=== PATIENT | male | born 1955 | race Caucasian/White ===

== ENCOUNTER 2019-11-22 08:07 | Observation (INO) | payer BC, SELFPAY ==
[2019-11-22] VITALS (9 sets, daily range): BP systolic 131–178; BP diastolic 72–98; PULSE 50–71; RESP 15–18; TEMP 36.3–37.1; O2SAT 93–97
--- NOTE | 2019-11-22 08:21 | ED.GENADUL_ITS ---
Discharge Plan Disposition Patient Disposition: [facility] INPATIENT Condition: Stable Discharge Details Chief Complaint: FlankPain Clinical Impression: Calculus of distal left ureter Primary Care Provider: Yudith,Local ED Provider: Luis Jay Home Meds and New Rx's Prescriptions: No Action No Known Home Meds RF: 0 Medical Decision Making 64-year-old male who [place] out of state, [place]. Reports days of stuttering left flank pain that became severe and began to radiate to the lower abdomen over the early morning babysitter hours today. He has not had a fever. He was nauseated at home. He arrives afebrile, in pain but otherwise well-appearing. He is tender in his left flank and left lower abdomen. Differential diagnosis includes renal colic, UTI, would consider other intra-abdominal pathologies. Patient IV access established, given ketorolac, antiemetic, fluids. Screening laboratories obtained and he was referred for CT images. Labs: Positive hematuria but negative LE and nitrates. Note of uric acid present. He denies history of gout. Blood work: White blood cell count 7.7, hematocrit 45.7, platelets 237. BUN is 23 with a creatinine of 1.0 and electrolytes are normal. CT with 10 x 6 x 6 mm distal left ureteral calculus with moderate collecting system dilatation. There was a note of a 2.3 cm cyst of the right kidney. 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 Please see formal report. Patient given Flomax. He had some improvement of his pain which then recurred. Patient was seen in consultation by Dr. Car. Due to ongoing pain, patient will be admitted. [facility] General Mode of arrival: ambulatory . Date/Time Provider Initiated Documentation: 11/22/19 08:09 . Limitations to Documentation: no limitations . Information obtained by: patient . History of Present Illness 64 year old M presents to the emergency department with the chief complaint of Left flank pain worse over hours, described as moderate and similar to prior episodes, and is localized to the abdomen and left. Patient reports radiation to back. Patient started experiencing this hour(s) and it has been intermittent. No relieving factors improve symptom(s), No exacerbating factors reported . Patient notes other (Bloody urine); denies fever/chills. Patient did receive the following treatments prior to arrival, none Related Data Home Medications Medication Instructions Recorded Confirmed Unknown [No Known Home Meds] 11/22/19 11/22/19 Allergies Allergy/AdvReac Type Severity Reaction Status Date / Time No Known Allergies Allergy Unverified 11/22/19 08:14 General Stated Complaint: FlankPain DANIKA: 3 Review of Systems Narrative: History of same in the past. Staying at his home in [place]. No recent illness. Denies fever. 6 systems reviewed and otherwise negative [facility] Medical History (Updated 11/22/19 @ 11:36 by Luis Jay MD) Kidney stone (Chronic) Social History Smoking/Tobacco Use Status: Never Alcohol Intake: current Alcohol Intake frequency: a few times a week Drug use: Occasionally Substance use type: marijuana Do you feel safe at home: Yes Do you feel safe in your relationship?: Yes Exam Narrative Exam Narrative: GEN: awake, alert, oriented 3. Pleasant, well groomed, interactive. HEAD: Normocephalic, atraumatic ENT: Mucous membranes moist, oropharynx unremarkable, External ear exam unremarkable EYES: PERRL, EOMI NECK: Full ROM, no JASON, no menigismus CHEST/RESP: Nontender, clear to auscultation bilateral, no wheeze/rhonchi/rales CARDIOVASCULAR: RRR, no murmur, rub sanjiv. 2+ Rad pulse bilateral ABDOMEN: Soft, tender left, did not appreciate rebound, no mass. +Bowel sounds. Back with left flank tenderness EXT: Full ROM, no edema, no rash Neuro: Grossly normal neurologic exam, conversant, interactive. Psych: Speech fluent, thoughts congruent, affect normal Course Vital Signs Vital signs: Vital Signs Temperature 36.6 C 11/22/19 08:14 Pulse 54 L 11/22/19 08:14 Respiratory Rate 15 11/22/19 08:14 Pulse Oximetry 97 11/22/19 08:14 Temperature 36.6 C 11/22/19 08:14 Temperature Source Temporal Artery Scan 11/22/19 08:14 Pulse 54 L 11/22/19 08:14 Respiratory Rate 15 11/22/19 08:14 Blood Pressure Position Supine 11/22/19 08:14 Pulse Oximetry 97 11/22/19 08:14 Oxygen Delivery Method Room Air 11/22/19 08:14 Oxygen Flow Rate 0 02/09/20 08:14 Pain Level 9 11/22/19 08:14
[2019-11-22] MEDS: Ketorolac 30 MG/ML VIAL IVP (08:22)
[2019-11-22] MEDS: Ondansetron 4 MG/2 ML VIAL IVP (08:22)
[2019-11-22] MEDS: Normal Saline 1,000 ML 150 ML IV ×4 (08:24→22:10)
[2019-11-22 08:25] LABS: Bilirubin Negative (Negative); Blood Large (Negative); Clarity Sl Cloudy (Clear); Glucose Negative (Negative); Ketones Negative (Negative); Leukocyte Esterase Negative (Negative); Nitrite Negative (Negative); Specific Gravity >= 1.030 (1.005-1.025); Urobilinogen 0.2 EU/dL (Up TO 0.2); pH 5.5 (5-8)
[2019-11-22 08:38] LABS: Bacteria Moderate HPF (Negative); C & S Indicated? Yes; Casts Negative LPF (Negative); Epithelial Cells Rare HPF (Negative); Mucus Negative (Negative); RBC >50 HPF (0-2); WBC Negative HPF (0-5)
[2019-11-22 08:42] LABS: Abs Immature Grans 0.01 k/cumm (0.0-0.09); Absolute Basophil Count 0.04 k/cumm (0.0-0.2); Absolute Eosinophil Count 0.12 k/cumm (0.0-0.7); Absolute Neutrophil Count 5.69 k/cumm (1.2-6.7); Basophils % 0.5; Eosinophils % 1.5; HCT 45.7 % (40.0-50.0); HGB 15.6 g/dL (13.5-17.5); Immature Grans % 0.1 %; Lymphocytes % 15.5; Mean Corp. HGB Concentration 34.1 g/dL (32.0-36.0); Mean Corpuscular Hemoglobin 29.2 pg (27.0-33.0); Mean Corpuscular Volume 85.6 fL (80-95); Mean Platelet Volume 11.1 fL (8.0-11.0); Neutrophils % 73.4; Platelet Count 237 x1000/uL (130-400); RBC 5.34 m/cumm (4.50-6.00); White Blood Cell Count 7.76 k/cumm (4.4-10.8)
[2019-11-22 08:48] LABS: ALT 42 U/L (16-63); AST 24 U/L (15-37); Albumin 4.4 g/dL (3.4-5.0); Alkaline Phosphatase 88 U/L (46-116); BUN 23 mg/dL (7-18); Bilirubin, Total 0.3 mg/dL (0.2-1.0); CREATININE 1.09 mg/dL (0.70-1.30); Calcium 9.1 mg/dL (8.5-10.1); Chloride 103 mmol/L (98-107); Glucose 138 mg/dL (74-106); Sodium 139 mmol/L (136-145)
--- NOTE | 2019-11-22 08:58 | DI.CT_ITS ---
EXAM: CT RENAL COLIC WO CLINICAL HISTORY: Flank pain TECHNIQUE: Noncontrast COMPARISON: No exams were available for comparison FINDINGS: There is moderate left hydronephrosis. There is a duplex collecting system. The upper and lower po le moieties merge at the upper 3rd of the ureter. There is a 6 x 7 x 11 millimeter stone in the dist al left ureter. There is left perinephric stranding. Stranding is also seen around the distal urete r. An additional tiny stone is seen near the lower pole of the left kidney. No right renal calculi or hydronephrosis is seen. There is a small right renal cyst. The bladder is mildly distended. Calc ifications are seen posteriorly in the bladder which could be within the bladder wall. Prostate is n ot enlarged. There is bilateral gynecomastia, left greater than right. Lung bases show dependent changes. The li allie, gallbladder, spleen, pancreas and adrenals are unremarkable. There is no bowel dilatation or in flammatory change. Diverticulosis is noted of the descending and sigmoid colon. The appendix appear s normal. The aorta is normal in diameter. IMPRESSION: Moderate left hydronephrosis secondary to an 11 millimeter stone in the distal ureter.
--- NOTE | 2019-11-22 09:26 | DI.VRAD_ITS ---
PROCEDURE INFORMATION: Exam: CT Abdomen And Pelvis Without Contrast Exam date and time: 11/22/2019 8:57 AM Age: 64 years old Clinical indication: Other: Flank pain; Patient HX: History of kidney stones TECHNIQUE: Imaging protocol: Computed tomography of the abdomen and pelvis without contrast. Radiation optimization: All CT scans at this facility use at least one of these dose optimization techniques: automated exposure control; mA and/or kV adjustment per patient size (includes targeted exams where dose is matched to clinical indication); or iterative reconstruction. COMPARISON: No relevant prior studies available. FINDINGS: Lungs: Bibasilar atelectasis Liver: Normal. No mass. Gallbladder and bile ducts: Normal. No calcified stones. No ductal dilation. Pancreas: Normal. No ductal dilation. Spleen: Normal. No splenomegaly. Adrenals: Normal. No mass. Kidneys and ureters: 10.5 x 6.5 by 6.2 millimeter distal LEFT ureteral calculus causes moderate dilatation of LEFT collecting system and LEFT ureter. The LEFT kidney is edematous and there is LEFT perirenal stranding. 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 2.3 cm cyst in the right kidney Stomach and bowel: Unremarkable. No obstruction. No mucosal thickening. Appendix: No evidence of appendicitis. Intraperitoneal space: Unremarkable. No free air. No significant fluid collection. Vasculature: Unremarkable. No abdominal aortic aneurysm. Lymph nodes: Unremarkable. No enlarged lymph nodes. Bladder: Calcifications in the bladder wall posteriorly to the right of midline (2:136-134). Reproductive: Unremarkable as visualized. Bones/joints: Unremarkable. No acute fracture. Soft tissues: Unremarkable. IMPRESSION: 1. 10.5 x 6.5 by 6.2 millimeter distal LEFT ureteral calculus causes moderate dilatation of LEFT collecting system and LEFT ureter. The LEFT kidney is edematous and there is LEFT perirenal stranding. 2. 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 3. Calcifications in the bladder wall posteriorly to the right of midline (2:136-134). Recommend further evaluation to rule out infection or neoplasm. Recommend urology consult Dictated and Authenticated by: Meghna Lancaster MD. Ordering:CORAL Smith MD
[2019-11-22] MEDS: HYDROmorphone 2 MG/ML VIAL 0.5 MG IVP ×5 (09:40→22:10)
[2019-11-22] MEDS: Tamsulosin 0.4 MG CAPCR PO (09:43)
--- NOTE | 2019-11-22 14:07 | HPE_ITS ---
Date of service: 11/22/19 Time of Service: 14:08 Assessment and Plan Assessment and plan (1) Calculus of distal left ureter: Status: Acute Assessment and plan: We will give him hydration and analgesia overnight and reassess in the morning. If he remains symptomatic, we will consider surgical intervention (stent versus ureteroscopy). If he is clinically improved, we can give him the option of being discharge and returning to [place] for ultimate treatment of his stone. History of Present Illness History of Present Illness Chief Complaint: Left ureteral stone Narrative: This is a 64 year old man who has a history of left sided kidney and ureteral stones. He has been under the care of urologists in [place]. He has required ureteroscopy in the past. It sounds like he had a staged procedure with a stent having been placed for about 10 days followed by definitive treatment. He began having some gross hematuria and low back pain about a week ago. He saw his urologist last in the week and a CT scan was scheduled for this week. He was in our area when his pain became severe and he presented to our ER. He was evaluated with a stone protocol CT scan. There is a large stone at the level where the iliac vessels cross the ureter. He has no fever or chills. He has had some nausea. His pain returned afteer being medicated in the ER. He is admitted for hydration and analgesia. Review of Systems Narrative: No fevers or chills No vision change or dysphasia No diabetes or thyroid dysfunction No shortness of breath, cough or hemoptysis No chest pain or palpitations No hepatitis, ulcers, jaundice, diarrhea or constipation No seizures, strokes or peripheral neuropathy No bleeding disorders or anemia No gout [facility] Medical History (Updated 11/22/19 @ 14:15 by Escobar Car MD) Kidney stone (Chronic) Urolithiasis (Acute) Social History Smoking/Tobacco Use Status: Never Alcohol Intake: current Alcohol Intake frequency: a few times a week Drug use: Occasionally Substance use type: marijuana Do you feel safe at home: Yes Do you feel safe in your relationship?: Yes Meds Home Medications and Allergies Home Medications Medication Instructions Recorded Confirmed Type Unknown [No Known Home Meds] 11/22/19 11/22/19 History Allergies Allergy/AdvReac Type Severity Reaction Status Date / Time No Known Allergies Allergy Unverified 11/22/19 08:14 Exam Narrative Exam Narrative: I reviewed his CT scan from the ER. He has a partially duplicated collecting system on the left. He has a rather large left ureteral stone which is obstructing both segments of the duplicated collecting system. The stone appears to be at the level where the ureter and iliac vessels come together. There are a few small nonobstructing stones in the left kidney as well. Const General: cooperative Nutritional Appearance: average body habitus Orientation: alert, awake and oriented x3 Neck Neck: supple Resp Effort & Inspection: normal respiratory effort Auscultation: clear to auscultation bilaterally Cardio Rate: regular rate Rhythm: regular rhythm GI Palpation: soft, no masses, not rigid and nontender Neuro General: alert, awake and oriented x3 Results Labs Result diagrams: 11/22/19 08:20 11/22/19 08:20 Labs: Laboratory Results - last 24 hr 11/22/19 11/22/19 11/22/19 08:13 08:20 08:20 WBC 7.76 RBC 5.34 Hgb 15.6 Hct 45.7 MCV 85.6 MCH 29.2 MCHC 34.1 RDW 13.0 Plt Count 237 MPV 11.1 H Immature Gran % 0.1 Neutrophils % 73.4 Lymphocytes % 15.5 Monocytes % 9.0 Eosinophils % 1.5 Basophils % 0.5 Absolute Neutrophils 5.69 Absolute Lymphocytes 1.20 Absolute Monocytes 0.70 Absolute Eosinophils 0.12 Absolute Basophils 0.04 Sodium 139 Potassium 4.0 Chloride 103 Carbon Dioxide 26.0 Anion Gap 10.0 BUN 23 H Creatinine 1.09 Estimated GFR/1.73 m2 >= 60.00 Glucose 138 H Calcium 9.1 Total Bilirubin 0.3 AST 24 ALT 42 Alkaline Phosphatase 88 Total Protein 8.0 Albumin 4.4 Urine Color Yellow Urine Clarity Sl cloudy Urine pH 5.5 Ur Specific [place] >= 1.030 H Urine Protein 30 H Urine Ketones Negative Urine Blood Large H Urine Nitrite Negative Urine Bilirubin Negative Urine Urobilinogen 0.2 Ur Leukocyte Esterase Negative Urine RBC >50 H Urine WBC Negative Ur Epithelial Cells Rare Urine Crystals Many uric acid Urine Bacteria Moderate Urine Casts Negative Urine Mucus Negative Ur Culture Indicated? Yes Urine Glucose Negative Last Vital Signs Temp 36.3 C L 11/22/19 13:24 Pulse 60 11/22/19 13:24 Resp 18 11/22/19 13:24 BP 163/98 H 11/22/19 13:24 Pulse Ox 96 11/22/19 13:24
[2019-11-22] MEDS: Ketorolac 15 MG/ML VIAL IVP ×2 (17:03→22:11)
[2019-11-22] MEDS: Docusate Sodium 100 MG CAP PO (19:41)
[2019-11-22] MEDS: Calcium Carbonate *TUMS* 500 MG CHEW PO (20:33)
[2019-11-22] MEDS: Normal Saline Flush 10 ML SYR IVP (22:11)
[2019-11-23] VITALS (9 sets, daily range): BP systolic 117–140; BP diastolic 54–82; PULSE 51–69; RESP 13–22; TEMP 36.6–37; O2SAT 93–97
[2019-11-23] MEDS: HYDROmorphone 2 MG/ML VIAL 0.5 MG IVP ×3 (03:01→11:35)
[2019-11-23] MEDS: Normal Saline Flush 10 ML SYR IVP ×3 (03:02→11:36)
[2019-11-23] MEDS: Normal Saline 1,000 ML 150 ML IV ×2 (04:34→11:35)
[2019-11-23] MEDS: Ketorolac 15 MG/ML VIAL IVP (06:49)
--- NOTE | 2019-11-23 07:29 | PGE_ITS ---
Date of Service Date of service: 11/23/19 Time of Service: 07:29 Assessment and Plan Assessment and plan (1) Calculus of distal left ureter: Status: Acute Assessment and plan: He has no signs of sepsis, so we do not need to take him to the operating room emergently. I gave him the options of staying in the hospital and having me do a stone manipulation while he is here. I explained that I would initially do a retrograde pyelogram to identify the level of the stone. As long as I can pass the ureteroscope up to the stone safely, we should be able to treat it with a holmium laser and evacuate the stone fragments. If there is so much edema around the stone that we are unable to access the stone safely, he would need a staged procedure with placement of a ureteral stent followed by a more definitive therapy. The other option would be to discharge the patient with oral pain medications. He could then follow-up as an outpatient either with his urologist down in [facility] or here with me locally (if he is staying in the area for a longer amount of time) After our discussion this morning, he would prefer to move ahead with a surgical procedure today. I have made him n.p.o. and ordered an antibiotic to be given on-call to the operating room. Once our full complement of staffing has arrived this morning, we will contact to the operating room and get him on the schedule. Subjective Subjective Interval history since last seen: He is having less severe pain this morning, but still has some pressure related to his stone. He is not having any nausea or vomiting. He has no fevers. He has not passed a stone Exam Narrative Exam Narrative: He does not appear overly uncomfortable His vital signs are documented elsewhere His abdomen is soft with no masses. He is awake and alert Objective Objective Clinical Data: Abnormal lab results 11/22/19 11/22/19 11/22/19 Range/Units 08:13 08:20 08:20 MPV 11.1 H (8.0-11.0) fL BUN 23 H (7-18) mg/dL Glucose 138 H (74-106) mg/dL Ur Specific [place] >= 1.030 H (1.005-1.025) Urine Protein 30 H (Negative) mg/dL Urine Blood Large H (Negative) Urine RBC >50 H (0-2) HPF Vital Signs Temperature 37.1 C 02/09/20 23:38 Temperature Source Tympanic 11/22/19 23:38 Pulse 65 11/22/19 23:38 Pulse Rhythm Regular 11/23/19 03:55 Pulse Strength Normal 11/22/19 10:49 Respiratory Rate 18 11/22/19 23:38 Respiratory Effort Non-Labored 11/23/19 03:55 Respiratory Depth Normal 11/23/19 03:55 Respiratory Pattern Normal 11/23/19 03:55 Blood Pressure 131/72 11/22/19 23:38 Blood Pressure Mean 113 11/22/19 10:49 Blood Pressure Position Supine 11/22/19 10:49 Pulse Oximetry 96 11/22/19 23:38 Oxygen Delivery Method Room Air 11/22/19 23:38 Oxygen Flow Rate 0 11/22/19 23:38 Pain Level 6 11/23/19 06:49 Intake & Output 11/22/19 11/22/19 11/23/19 11:59 23:59 11:59 Intake Total 2517.5 / 2517.5 960 / 960 Output Total 100 / 550 450 / 550 500 / 500 Balance -100 / 1967.5 7.5 / 1967.5 460 / 460 Weight 108.862 kg 108.862 kg Intake: IV 7.5 / 2036.5 960 / 960 Oral 480 / 480 Output: Urine 100 / 550 450 / 550 500 / 500 Other: Urine Color Dark Red Yellow Yellow Urine Appearance Hematuria Clear Clear Urine Odor Strong Normal Strain Urine Result Negative-No Stones/Gravel Negative-No Stones/Gravel Comment a few flecks of gravel noted on straining No sediment present in strainer No sediment present. Stool Size Small Stool Characteristics Soft Formed Voiding Methods Urinal Urinal Laboratory Results WBC 7.76 k/cumm (4.4-10.8) 11/22/19 08:20 RBC 5.34 m/cumm (4.50-6.00) 11/22/19 08:20 Hgb 15.6 g/dL (13.5-17.5) 11/22/19 08:20 Hct 45.7 % (40.0-50.0) 11/22/19 08:20 MCV 85.6 fL (80-95) 11/22/19 08:20 MCH 29.2 pg (27.0-33.0) 11/22/19 08:20 MCHC 34.1 g/dL (32.0-36.0) 11/22/19 08:20 RDW 13.0 % (11.8-14.1) 11/22/19 08:20 Plt Count 237 x1000/uL (130-400) 11/22/19 08:20 MPV 11.1 fL (8.0-11.0) H 11/22/19 08:20 Immature Gran % 0.1 % 11/22/19 08:20 Neutrophils % 73.4 11/22/19 08:20 Lymphocytes % 15.5 11/22/19 08:20 Monocytes % 9.0 11/22/19 08:20 Eosinophils % 1.5 11/22/19 08:20 Basophils % 0.5 11/22/19 08:20 Absolute Neutrophils 5.69 k/cumm (1.2-6.7) 11/22/19 08:20 Absolute Lymphocytes 1.20 k/cumm (1.2-3.4) 11/22/19 08:20 Absolute Monocytes 0.70 k/cumm (0.11-0.7) 11/22/19 08:20 Absolute Eosinophils 0.12 k/cumm (0.0-0.7) 11/22/19 08:20 Absolute Basophils 0.04 k/cumm (0.0-0.2) 11/22/19 08:20 Sodium 139 mmol/L (136-145) 11/22/19 08:20 Potassium 4.0 mmol/L (3.5-5.1) 11/22/19 08:20 Chloride 103 mmol/L (98-107) 11/22/19 08:20 Carbon Dioxide 26.0 mmol/L (21.0-32.0) 11/22/19 08:20 Anion Gap 10.0 mmol/L (3-11) 11/22/19 08:20 BUN 23 mg/dL (7-18) H 11/22/19 08:20 Creatinine 1.09 mg/dL (0.70-1.30) 11/22/19 08:20 Estimated GFR/1.73 m2 >= 60.00 (mL/min/1.73m2) 11/22/19 08:20 Glucose 138 mg/dL (74-106) H 11/22/19 08:20 Calcium 9.1 mg/dL (8.5-10.1) 11/22/19 08:20 Total Bilirubin 0.3 mg/dL (0.2-1.0) 11/22/19 08:20 AST 24 U/L (15-37) 11/22/19 08:20 ALT 42 U/L (16-63) 11/22/19 08:20 Alkaline Phosphatase 88 U/L (46-116) 11/22/19 08:20 Total Protein 8.0 g/dL (6.4-8.2) 11/22/19 08:20 Albumin 4.4 g/dL (3.4-5.0) 11/22/19 08:20 Urine Color Yellow (Yellow) 11/22/19 08:13 Urine Clarity Sl cloudy (Clear) 11/22/19 08:13 Urine pH 5.5 (5-8) 11/22/19 08:13 Ur Specific [place] >= 1.030 (1.005-1.025) H 11/22/19 08:13 Urine Protein 30 mg/dL (Negative) H 11/22/19 08:13 Urine Ketones Negative mg/dL (Negative) 11/22/19 08:13 Urine Blood Large (Negative) H 11/22/19 08:13 Urine Nitrite Negative (Negative) 11/22/19 08:13 Urine Bilirubin Negative (Negative) 11/22/19 08:13 Urine Urobilinogen 0.2 EU/dL (Up TO 0.2) 11/22/19 08:13 Ur Leukocyte Esterase Negative (Negative) 11/22/19 08:13 Urine RBC >50 HPF (0-2) H 11/22/19 08:13 Urine WBC Negative HPF (0-5) 11/22/19 08:13 Ur Epithelial Cells Rare HPF (Negative) 11/22/19 08:13 Urine Crystals Many uric acid HPF (Negative) 11/22/19 08:13 Urine Bacteria Moderate HPF (Negative) 11/22/19 08:13 Urine Casts Negative LPF (Negative) 11/22/19 08:13 Urine Mucus Negative (Negative) 11/22/19 08:13 Ur Culture Indicated? Yes 11/22/19 08:13 Urine Glucose Negative mg/dL (Negative) 11/22/19 08:13
--- NOTE | 2019-11-23 11:13 | W.NUTCONSULT ---
Date of service: 11/23/19 Time of Service: 11:13 Nutritional Consult ASSESSMENT: 64 year old gentleman with calculus of distal left ureter. Currently NPO for procedure. Met nutrient/fluid needs yesterday. BMI indicates class 1 obesity. Not considered at nutritional risk. MONITORING AND EVALUATION: po intake, weight, labs Time Spent in Nutritional Counseling and Treatment: 0 time spent face to face
[2019-11-23] MEDS: ceFAZolin 2 GM/50 ML BAG IVPB (13:06)
[2019-11-23] MEDS: Lidocaine 2% Jelly 6 ML SYR (13:28)
[2019-11-23] MEDS: Omnipaque 300 MG/ML 50 ML BTL (13:28)
--- NOTE | 2019-11-23 13:48 | DI.RAD_ITS ---
EXAM: XR RETROGRADE IN OR INDICATION: Calculus of distal left ureter. COMPARISON: CT RENAL COLIC WO from 11/22/2019 TECHNIQUE: Real-time and 2D digital imaging was performed. Fluoroscopy was provided for Dr. Josep schultz performing retrograde examination. FINDINGS: Hard copy images show injection of contrast into the left ureter. There is a filling defect in the d istal left ureter and dilatation of the more proximal portion of the ureter. Please see procedure no te for details. Fluoro Time: 27.2 seconds
--- NOTE | 2019-11-23 14:22 | W.PM.DS.N ---
DS: Diagnosis Discharge Diagnosis (1) Calculus of distal left ureter: Status: Acute Discharge Plan Disposition Patient Disposition: HOME Condition: Stable Discharge Details Chief Complaint: FlankPain Clinical Impression: Calculus of distal left ureter Reason For Visit: KIDNEY STONE Admit Date/Time: 11/22/19 11:33 Admit Provider: Escobar Car Attending Provider: Escobar Car [facility] Hospital Course Hospital Course: The patient presented to the emergency room on 11/22/2019. He was evaluated with a noncontrast CT scan. He was found to have a distal ureteral stone on the left. His pain was not well controlled, so he was admitted to the hospital for IV hydration and analgesia. On hospital day #1, he was still symptomatic, so we took him to the operating room for cystoscopy and retrograde pyelogram. We found that his ureteral stone had migrated to the ureterovesical junction. I was able to dilate the ureteral orifice with a UroMax balloon and extract the stone in its entirety. When I injected contrast into the system, the ureter drained quite slowly. We elected to place a ureteral stent for a few days. The stent has a safety string so that the patient can remove the stent on his own. Following the procedure, he was quite comfortable. He is tolerating p.o. intake with no nausea or vomiting. His pain control is adequate with oral analgesics. He is ready for discharge on postoperative day #1. Home Meds and New Rx's Prescriptions: New oxycodone 5 mg capsule 5 - 10 mg PO Q6H MDD 8 PRN (Reason: pain) Qty: 12 RF: 0 Discharge Instructions Additional Instructions: Your ureteral stent can be removed in 48 to 72 hours. The removal can be done by pulling the string that comes from the urethra and is taped on the top of the penis. If you begin having urinary incontinence, that is usually a sign that the stent has been pulled partway out. You can then pull the stent the rest of the way out. The stent is a long thin blue tube. You should have a renal ultrasound 4 to 6 weeks after your ureteroscopy. The ultrasound could be done here at [facility] or back in [place]. I have printed an order for the ultrasound so that you can hand deliver it to your providers in [place]. If you prefer to have the ultrasound done here at [facility], simply call our office and we can make the arrangement when you are back in town. Your stone analysis results should be back in a few weeks. On your initial urinalysis, we found uric acid crystals. If your stone is uric acid as well, this type of stone can be prevented by adjusting the acidity in your urine. Once you get back home, please contact our office with the names of your providers in [place]. We will send all of your records to your other providers as well. Activity:: Activity as Tolerated Equipment/Supplies:: No Equipment Needed Diet:: As Tolerated DS: Summary Status at Discharge Functional status at discharge: independent ambulation Overall status at discharge: patient is back to baseline Mental Status: mental status grossly normal Speech and Movement: speech and movement normal Mood: congruent mood Affect: normal affect Time Spent with Patient providing and/or coordinating discharge services: Less than 30 minutes Exam Narrative Exam Narrative: At the time of discharge, he is comfortable. His vital signs are documented elsewhere in the chart His chest wall motion is normal. His lungs are clear. Cardiac exam shows a regular rate and rhythm His abdomen is soft with no guarding or rebound tenderness He is awake, alert and oriented. Psych Mental Status: mental status grossly normal Speech and Movement: speech and movement normal Mood: congruent mood Affect: normal affect DS: Data Vitals/I&O Vitals and I&O: Vital Signs Temperature 36.7 C 11/23/19 13:50 Temperature Source Tympanic 11/23/19 12:58 Pulse 61 11/23/19 14:19 Pulse Rhythm Regular 11/23/19 12:18 Pulse Strength Normal 11/22/19 10:49 Respiratory Rate 22 11/23/19 14:19 Respiratory Effort Non-Labored 11/23/19 12:18 Respiratory Depth Normal 11/23/19 12:18 Respiratory Pattern Normal 11/23/19 12:18 Blood Pressure 133/64 11/23/19 14:19 Blood Pressure Mean 113 11/22/19 10:49 Blood Pressure Position Supine 11/22/19 10:49 Pulse Oximetry 97 11/23/19 14:19 Respiratory End-tidal CO2 31 11/23/19 14:19 Oxygen Delivery Method Room Air 11/23/19 14:19 Oxygen Flow Rate 0 11/23/19 14:19 Pain Level 1 11/23/19 14:19 Intake & Output 11/22/19 11/23/1911/23/20 23:59 11:59 23:59 Intake Total 2516.5 / 2516.5 1959 / 2510 550 / 2510 Output Total 450 / 550 800 / 800 Balance 1966. 1160 / 1710 550 / 1710 Weight 108.862 kg Intake: IV 1960 / 2510 550 / 2510 Oral 480 / 480 Output: Urine 450 / 550 800 / 800 Other: Urine Color Yellow Yellow Urine Appearance Clear Clear Clear Urine Odor Strong None Strain Urine Result Negative-No Stones/Gravel Negative-No Stones/Gravel Comment No sediment present in strainer No sediment present. Stool Size Small Stool Characteristics Soft Formed Emesis Description None Voiding Methods Urinal Toilet Data Completed and Pending Labs on day of discharge: Preliminary micro results at discharge 11/22/19 08:13 Urine Culture - Preliminary Urine - Reflex from Ua Gram Positive Jessica PFSH Medical History Kidney stone (Chronic) Urolithiasis (Acute) Surgical History (Updated 11/23/19 @ 14:24 by Escobar Car MD) S/P cystoscopy with ureteral stent placement (Acute) Social History Smoking/Tobacco Use Status: Never Alcohol Intake: current Alcohol Intake frequency: a few times a week Drug use: Occasionally Substance use type: marijuana Do you feel safe at home: Yes Do you feel safe in your relationship?: Yes
[2019-11-23] MEDS: Phenazopyridine 200 MG TAB PO (14:31)
--- NOTE | 2019-11-23 14:53 | ROE_ITS ---
DATE OF PROCEDURE: November 23, 2019 PREOPERATIVE DIAGNOSIS: Left ureteral stone. POSTOPERATIVE DIAGNOSIS: Same. PROCEDURE: Cystoscopy; left retrograde pyelogram; left ureteral dilation; left ureteroscopy with sto ne extraction; insert left ureteral stent. SURGEON: Escobar Car M.D. ANESTHESIA: General. COMPLICATIONS: None. ESTIMATED BLOOD LOSS: Minimal. FINDINGS: Large ureteral stone just within the left ureterovesical junction. HISTORY: This is a 64-year-old gentleman who has a long history of left-sided kidney stones. He has required ureteroscopic stone manipulation in the past. He was visiting our area when he had another episode of renal colic. He presented to the Emergency R oom and was found to have a 6x10 mm distal ureteral stone. His pain was not well-controlled initiall y, so he was kept in the hospital overnight for hydration and analgesia. On the following morning he still had some pressure and discomfort. We gave him the option of being discharged and returning home to have his stone addressed with his usual providers. He elected to stallings ve a stone procedure done locally instead. OPERATIVE REPORT: The patient was brought to the operating room on 11/23/2019. He was given a dose o f preoperative IV antibiotics. After successful induction of general anesthesia, he was placed in the dorsal lithotomy position. Hi s genitalia was prepped and draped sterilely. A 22 Iranian rigid cystoscope was passed through the urethra into the bladder. The urethra and bladde r were inspected with a 30-degree lens. The pendulous, bulbous and membranous urethras all appeared normal with no strictures. The prostatic urethra showed some lateral lobe enlargement but no significant median lobe. The bladder neck was entered and the bladder mucosa was inspected. There was a large amount of marie debris along the base of the bladder. This was irrigated using a Mary syringe. Both ureteral orifices appeared normal in configuration and location. The remainder of the bladder s howed no papillary or nodular lesions. I initially attempted to pass a 6 Iranian access catheter through the cystoscope into the left uretera l orifice. I was unable to advance the catheter, so I used a guidewire to negotiate into the left di stal ureter. I then passed the access catheter over the guidewire and injected Omnipaque through the access catheter under fluoroscopic guidance in order to get a retrograde pyelogram. 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 The common distal ureter was markedly dilated with a large filling defect just inside the u reteral orifice. I advanced the guidewire up the remainder of the ureter into the lower pole system. We removed the a ccess catheter and utilized a UroMax balloon to dilate the distal ureter. We used a 4 cm balloon and the orifice dilated quite nicely. I was then able to advance a semi-rigid ureteroscope through the urethra and into the left ureteral orifice. The stone was then visualized. We were able to grasp th e stone in a Dropbox stone basket and remove it in its entirety. The stone was then sent to pathology for permanent section. I passed a 6 Iranian access catheter back over the wire and again injected Omnipaque into the ureter. We took some delayed films and it did not seem that the left ureter was draining very well. There w as no extravasation seen, but because of the persistent dilation we elected to place a ureteral stent . We chose a 4.8 Iranian variable-length stent and advanced the stent over the guidewire. We positio paul the stent such that the proximal end was curled in the lower pole collecting system and the dista l end was curled within the bladder. We left the safety string in place and brought the string throu gh the urethral meatus. We anchored the string onto the dorsum of the penis. I would expect it shou ld be safe to remove the stent in 48 to 72 hours. The patient tolerated this procedure well with no complications.
--- NOTE | 2019-11-23 22:20 | INITIAL_ITS ---
- If Service Date Differs Date of service: 11/23/19 Time of Service: 17:00 Care Management Initial Assess REASON FOR HOSPITALIZATION:: Kidney stone PREVIOUS FUNCTIONAL STATUS/SOCIAL/FAMILY SUPPORTS:: Ralph is here visiting, he is indepedent with ADL's, transportation and all functions. He denies any needs. 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 Ralph hopes to be discharged in the morning. Ralph states he is more comfortable post op. ADVANCE DIRECTIVES:: None on file Has patient been provided with information about the portal?: Yes Did the patient sign up for the portal?: No CODE STATUS:: Full Code INSURANCE COVERAGE / FINANCIAL ISSUES:: [employer] CURRENT HOME/COMMUNITY SERVICES/EQUIPMENT:: None Ralph states he has no services or equipment at home. PRIMARY CARE PHYSICIAN:: Out of states provider POTENTIAL DISCHARGE NEEDS:: Follow up with urology and primary care as directed. PATIENT/FAMILY EDUCATION NEEDS:: Discharge education, limtations and follow up plan of care including ask me three and self management. ANTICIPATED BARRIERS TO DISCHARGE:: Status post urethral stent placement, no one to transport post op. TRANSPORTATION:: Self private car PLAN:: Ralph will be discharged home when medically ready, no additional services. Ralph will follow up with his provider as directed. CM to continue to assess for discharge needs.
[2019-11-24 03:33] VITALS: BP 120/66; PULSE 59; RESP 19; TEMP 37.2; O2SAT 97
[2019-11-24] MEDS: Acetaminophen 325 MG TAB 650 MG PO (05:46)
--- NOTE | 2019-11-24 10:17 | PDOC.CMDIS ---
LACE Index Scoring Tool - Questions: Length of Stay (in days): 2 Acuity (Admit via E.D.?): Yes E.D. Visits: 1 - Answers: Total Score: 6 Risk of Readmission: Low Risk Care Management Discharge Reason for Hospitalization: Kidney stone Discharge Plan: Ralph will discharge home when medically ready, no additional services. Ralph will follow up with his PCP and plan of care as prescribed. He will transport via private vehicle with his , Tonya. Patient/Family Education Needs: Review discharge instructions, discuss Ask Me Three.
[2019-11-30 10:11] LABS: Interpretation 100% Uric acid; Source: Left Ureter
== END 2019-11-24 08:06 | disposition home or self-care (01) ==
LOC: ER 12:13 → MS 13:06
PROVIDERS: Admitting Provider Urology; Emergency Provider Emergency Medicine; Visit Provider Urology
PROC: 0TC78ZZ Extirpation of Matter from Left Ureter, Via Natural or Artificial Opening Endoscopic (ICD-10-PCS; CPT 52352; principal; 2019-11-23 13:00)
DX: N20.1 Calculus of ureter (principal); Z87.442 Personal history of urinary calculi; Q63.8 Other specified congenital malformations of kidney
CPT/HCPCS: 52352; 52332; 52344; 36415; 80053; 96361; 96374; 96375; 96376; 99222; 99232; 99238; 99285; 74176; 74420; 81003; 81015; 82365; 85025; 87086; 99284; G0378; J0690; J1885; J2001; J2405; J2704; Q9967

== ENCOUNTER 2020-01-01 06:54 | Outpatient (CLI) | payer BC, SELFPAY ==
--- NOTE | 2020-01-01 15:30 | DI.US_ITS ---
EXAM: US RENAL CLINICAL HISTORY: r/o silent hydronephrosis after ureteroscopy 11/23 TECHNIQUE: Ultrasound performed using standard protocol. COMPARISON: No exams were available for comparison FINDINGS: Renal ultrasound was performed according to the usual protocol. There is an incidental 18 millimeter in diameter simple cyst of the upper pole of the right kidney. No additional renal mass is seen. No hydronephrosis or nephrolithiasis. Urinary bladder is unremarkable in appearance and empties well wi th voiding. Prostatic volume estimated at 23 cc. IMPRESSION: Negative renal ultrasound. DATA REPOSITORY:
== END 2020-01-01 07:14 ==
PROVIDERS: Visit Provider Urology
DX: N20.1 Calculus of ureter (principal); N28.1 Cyst of kidney, acquired
CPT/HCPCS: 76770